=== PATIENT | female | born 1985 | race Two or more races ===

== ENCOUNTER 2018-08-07 10:18 | Inpatient (IN) | payer OTHER ==
[~2018-08-07] VITALS: Ht 154.9 cm; Wt 2.7 kg
[2018-08-25] MEDS ORDERED: PRENATAL 19 TA1 EACH PO (13:13)
== END 2018-08-29 14:15 | disposition home or self-care (01) | DRG 787 ==
LOC: OB/GYN 08-11 14:15 → LDR 08-25 12:35 → OB/GYN 08-27 02:18
PROVIDERS: ADMIT Obstetrics & Gynecology
PROC: 4A0HXFZ Measurement of Products of Conception, Cardiac Rhythm, External Approach (ICD-10-PCS; 2018-08-27)
PROC: 10D00Z1 Extraction of Products of Conception, Low, Open Approach (ICD-10-PCS; principal; 2018-08-27 07:00)
DX: O82 Encounter for cesarean delivery without indication (principal); O41.03X0 Oligohydramnios, third trimester, not applicable or unspecified; O62.0 Primary inadequate contractions; Z3A.39 39 weeks gestation of pregnancy; Z37.0 Single live birth

== ENCOUNTER 2021-01-17 07:57 | Outpatient (CLI) | payer OTHER ==
[~2021-01-17 07:57] MED LIST: PRENATAL 19 TA1 EACH PO
== END 2021-01-17 09:30 | disposition home or self-care (01) ==
LOC: PRENATAL 07:57
PROVIDERS: ATTEND Obstetrics & Gynecology Maternal & Fetal Medicine
DX: O35.0XX1 Maternal care for (suspected) central nervous system malformation in fetus, fetus 1 (principal); O35.3XX1 Maternal care for (suspected) damage to fetus from viral disease in mother, fetus 1; O98.512 Other viral diseases complicating pregnancy, second trimester; Z36.89 Encounter for other specified antenatal screening; Z3A.20 20 weeks gestation of pregnancy